=== PATIENT | male | born 1965 | race Caucasian/White ===

== ENCOUNTER → 2018-12-02 | Outpatient (CLI) | payer BC | END | disposition home or self-care (01) | LOC: LABPAT 15:32 | PROVIDERS: ATTEND Orthopaedic Surgery | DX: Z01.812 Encounter for preprocedural laboratory examination (principal); M16.11 Unilateral primary osteoarthritis, right hip | CPT/HCPCS: 87070 ==

== ENCOUNTER 2018-12-06 06:29 | Inpatient (IN) | payer BC ==
--- NOTE | 2018-12-05 19:05 | HP ---
HISTORY AND PHYSICAL REASON FOR ADMISSION: Surgery scheduled for 12/06/2018 HISTORY OF PRESENT ILLNESS: Merritt Guzmán is a 53-year-old patient seen with symptomatic right hip osteoarthritis. We discussed options for treatment. He elected to proceed with right total hip arthroplasty via direct anterior approach. Consent regarding the procedure was obtained. PAST MEDICAL HISTORY: Noncontributory. PAST SURGICAL HISTORY: Jaw reconstruction/mandibular reconstruction. DAILY MEDICATIONS: None. ALLERGIES: None. SOCIAL HISTORY: Denies tobacco use. PHYSICAL EXAMINATION: Evaluation of the right hip: His range of motion is limited with pain. Positive hip impingement sign. The right lower extremity is 1 cm short. Straight leg raise is negative. Distal neurovascular exam is intact. RADIOGRAPHS: Radiographs of the right hip revealed moderate/severe osteoarthritic changes. IMPRESSION: Right hip osteoarthritis. PLAN: Direct anterior right total hip arthroplasty. Surgery schedule 12/06/2018. MMODL / IJN: [id number] /
[~2018-12-06 06:29] MED LIST: HYDROmorphone 0.5 MG/0.5 ML SYRINGE IVP PRN; LIDOCAINE 1% 20 ML VIAL (10MG/ML) FOR IV START INTRADERMA PRN; ROPIVACAINE 246.25 MG, EPINEPHrine 0.5 MG, KETOROLAC 30 MG, cloNIDine HCL/PF 80 MCG, WA... MISCELLANE ONE; TRANEXAMIC ACID 1,000 MG in SODIUM CHLORIDE 0.9% 100 ML IVPB ONE
[2018-12-06] MEDS ORDERED: LIDOCAINE 1% 20 ML VIAL (10MG/ML) FOR IV START INTRADERMA ONE (07:06)
[2018-12-06] MEDS: LACTATED RINGERS 1,000 ML IV SCH ×2 (07:06→07:34)
[2018-12-06] MEDS: ACETAMINOPHEN TAB 500 MG TAB PO ONE ×2 (07:14→10:16)
[2018-12-06] MEDS: MELOXICAM 7.5 MG TAB PO ONE ×2 (07:14→10:16)
[2018-12-06] MEDS: ONDANSETRON 4 MG/2 ML VIAL IVP ONE ×2 (07:15→10:17)
[2018-12-06] MEDS ORDERED: ROPIVACAINE 246.25 MG, EPINEPHrine 0.5 MG, KETOROLAC 30 MG, cloNIDine HCL/PF 80 MCG, WA... MISCELLANE ONE ×5 (07:27)
[2018-12-06] MEDS ORDERED: LIDOCAINE 1% INJ 10MG/ML (20 ML MDV) ONE (07:31)
[2018-12-06] MEDS ORDERED: PHENYLEPHRINE-0.9% NACL SYG 1 MG/10 ML SYRINGE ONE (07:31)
[2018-12-06] MEDS ORDERED: MIDAZOLAM 2 MG/2 ML VIAL ONE (07:31)
[2018-12-06] MEDS ORDERED: fentaNYL (PF) 50 MCG/ML 2 ML AMP ONE (07:31)
[2018-12-06] MEDS ORDERED: PROPOFOL 10 MG/ML 20 ML VIAL IV ONE (07:31)
[2018-12-06] MEDS ORDERED: KETOROLAC 30 MG/ML 1 ML VIAL ONE (07:31)
[2018-12-06] MEDS ORDERED: TRANEXAMIC ACID 1,000 MG/10 ML VIAL ONE (07:31)
[2018-12-06] MEDS ORDERED: SODIUM CHLORIDE 0.9% 100 ML BAG ONE (07:31)
[2018-12-06] MEDS ORDERED: ceFAZolin 3,000 MG in SODIUM CHLORIDE 0.9% IRRIGATIO 3,000 ML IRRIGATION ONE (08:16)
[2018-12-06] MEDS ORDERED: ONDANSETRON 4 MG/2 ML VIAL IVP PRN (09:28)
[2018-12-06] MEDS ORDERED: NALOXONE 0.4 MG/ML 1 ML VIAL IV PRN (09:28)
[2018-12-06] MEDS ORDERED: HYDROmorphone 0.5 MG/0.5 ML SYRINGE IVP PRN ×2 (09:28)
[2018-12-06] MEDS ORDERED: HYDROmorphone 1 MG/ML 1 ML SYRINGE IVP PRN (09:28)
[2018-12-06] MEDS ORDERED: HYDROcodone/APAP 5-325MG 1 EACH TAB PO PRN (09:28)
--- NOTE | 2018-12-06 09:28 | P.OP ---
Date of Procedure: 12/06/18 Preoperative Diagnosis: Right hip osteoarthritis Postoperative Diagnosis: Right hip osteoarthritis Procedure(s) Performed: Direct anterior right total hip arthroplasty Implants: 1. Depuy Corail KA size 12 press-fit femoral stem 2. Depuy pinnacle 56 mm press-fit acetabular shell 3. Depuy pinnacle polyethylene acetabular liner neutral 36 mm ID 56 mm OD 4. Biolox delta ceramic femoral head +5 36 mm Anesthesia: local, spinal Surgeon: Bill Mei Assistant Director #1: Riley Bolanos Estimated Blood Loss (ml): 250 Pathology: other (Femoral head) Condition: stable Disposition: PACU Indications for Procedure: 53-year-old patient seen with symptomatic right hip osteoarthritis. After treatment options were discussed, he elected to proceed with total hip arthroplasty. Operative Findings: See description of procedure Description of Procedure: The patient was taken to the operative suite. Patient underwent a spinal anesthetic by the department of anesthesia. Patient was then transferred to the [place] table. Patient was given preoperative IV antibiotics and TXA. Both lower extremities were placed in standard leg spars. The hip was then prepped and draped in the normal sterile orthopedic fashion. A standard anterior incision was made beginning 3 cm lateral and 1 cm distal to the ASIS extending 10 cm. Dissection was then carried down through the subcutaneous soft tissues down to the fascia overlying the tensor fascia dallin. An incision was now made through the fascia. Careful dissection was taken down exposing the tensor fascia dallin muscle. A Cobra retractor was now placed along the medial femoral neck and a second one along the lateral femoral neck. The venous circumflex vessels were now identified, cauterized and clipped. We identified the anterior hip capsule. An incision was made through the hip capsule along the lateral border. I performed a partial anterior capsulectomy. Retractors were now placed around the femoral neck itself. A femoral neck cut was now made with a sagittal saw. It was completed with an osteotome at the lateral neck area. The femoral head was now removed without difficulty. The extremity was now rotated to 45 of external rotation. It was locked in position. Residual labrum was now debrided out. Serial reaming was performed of the acetabulum while Siddharth PHAM assisted holding an anterior retractor for exposure. Once we reached the appropriate size and a trial was position and fit nicely. The appropriate size was now chosen opened and made available. It was introduced into the acetabulum without difficulty. The C-arm/fluoroscopy was now brought into the operative field. We made sure we had a true AP pelvic view. We now under direct C- arm/fluoroscopy introduced into the acetabular component with appropriate version and inclination. I held the cup in appropriate position well Siddharth PHAM used a mallet to seat the acetabular component. I noted the component now to be well seated and stable. Acetabular cup introduce her was removed. The C-arm was pulled back. An appropriate liner was introduced and clicked into position. It was felt to be stable. At this point retractors were removed. The extremity was now placed into 120 external rotation with no traction. The leg was now dropped to the ground and adducted. Appropriate retractors were now positioned along the proximal femur. We also placed our femoral look into position. Additional capsular releasing was performed to gain access to the proximal femur. We now used a box osteotome. A canal finder was now utilized. Serial broaching was now performed with the assistance of Siddharth PHAM tapping the broaches down with a mallet while held the broach in appropriate rotation and position. This was done until we reached the appropriate size with good overall rotational stability. Appropriate calcar planing was performed. A trial head/neck was placed into position. The hip was now reduced. The C-arm/ fluoroscopy was brought back into the operative field. A spot film was obtained of the nonoperative hip. A spot film was obtained of the trial components. Overlays were performed, we noted good overall alignment and positioning for determining leg length. The C-arm/fluoroscopy was pulled back. Retractors were repositioned and the hip was dislocated. The leg was again taken down to the ground and adducted. Appropriate retractors were repositioned as well as the femoral hook. All trial components were removed. The femoral implant was opened along with the femoral head. The femoral implant was introduced on the appropriate handle into our pre-broached area. I held the component position well Siddharth PHAM used a mallet to seat the femoral component. The femoral component was now noted to be well seated and stable.. The femoral head was introduced with good positioning and fixation noted. Retractors were now removed. The hip was now reduced. There appeared be good positioning of the hip confirmed on intraoperative fluoroscopy. Spot films were obtained to document this. A second gram of TXA was given. The deep and superficial soft tissues were infiltrated with local analgesic. Bipolar cautery had been utilized intermittently through the procedure for hemostasis. The wound was irrigated copiously with pulse lavage mechanical irrigation. The fascia was repaired with Vicryl suture. The subcutaneous soft tissues were repaired in layers with Vicryl suture. The skin was approximated with pernio/Dermabond. Sterile dressings were applied. Patient was then awakened, transferred to a bed and taken to recovery in stable condition. Siddharth PHAM assisted with the complex procedure.
[2018-12-06] MEDS ORDERED: LACTATED RINGERS 1,000 ML IV ONE (09:29)
--- NOTE | 2018-12-06 11:59 | XR ---
Limited right hip HISTORY: Anterior hip replacement Single intraoperative C-arm image documents the procedure
--- NOTE | 2018-12-06 12:00 | FL ---
Fluoroscopy HISTORY: Anterior hip replacement 33 seconds fluoroscopy time supplied to the referring clinician. 1 intraoperative C-arm images docum ent the procedure. See dictated report from orthopedic surgery.
--- NOTE | 2018-12-06 14:09 | P.CONS ---
History of Present Illness - Reason for Consult Perioperative compensation management, mild sinus bradycardia - History of Present Illness Patient is a pleasant 53-year-old gentleman admitted for right hip arthrosis accident with surgery with very minimal blood loss pain is well-controlled denied any fever chills nausea vomiting abdominal pain. Patient denied any lightheadedness. Review of Systems REVIEW OF SYSTEMS: CONSTITUTIONAL: No fever, no malaise, no fatigue. HEENT: No recent visual problems or hearing problems. Denied any sore throat. CARDIOVASCULAR: No chest pain, orthopnea, PND, no palpitations, no syncope. PULMONARY: No shortness of breath, no cough, no hemoptysis. GASTROINTESTINAL: No diarrhea, no nausea, no vomiting, no abdominal pain. NEUROLOGICAL: No headaches, no weakness, no numbness. HEMATOLOGICAL: Denies any bleeding or petechiae. GENITOURINARY: Denies any burning micturition, frequency, or urgency. MUSCULOSKELETAL/RHEUMATOLOGICAL: Denies any joint pain, swelling, or any muscle pain. ENDOCRINE: Denies any polyuria or polydipsia. The rest of the 14-point review of systems is negative. Past Medical History Past Medical History: Osteoarthritis (OA) Additional Past Medical History / Comment(s): ARTHRITIS RIGHT HIP, HX OF JAW TUMOR AND BONE GRAFT TO LEFT LOWER JAW- ONLY ABLE TO OPEN JAW APPROX 1 INCH. History of Any Multi-Drug Resistant Organisms: None Reported Additional Past Surgical History / Comment(s): LEFT LOWER JAW TUMOR REMOVED WITH BONE USED FROM LEFT LOWER LEG. Past Anesthesia/Blood Transfusion Reactions: No Reported Reaction Additional Past Anesthesia/Blood Transfusion Reaction / Comm: HX OF JAW SURGERY- ONLY ABLE TO OPEN MOUTH APPROX 1 INCH. Past Psychological History: No Psychological Hx Reported Smoking Status: Never smoker Past Alcohol Use History: Occasional Past Drug Use History: None Reported - Past Family History Father Family Medical History: Cancer Additional Family Medical History / Comment(s): ESOPHAGEAL CANCER Mother Family Medical History: Cancer Additional Family Medical History / Comment(s): BREAST CANCER Medications and Allergies Home Medications Medication Instructions Recorded Confirmed Type Naproxen Sodium [Aleve] 220 mg PO BID PRN 11/26/18 12/06/18 History HYDROcodone/APAP 7.5-325MG [[place] 1 tab PO Q6H PRN 12/06/18 12/06/18 History 7.5-325] Allergies Allergy/AdvReac Type Severity Reaction Status Date / Time No Known Allergies Allergy Verified 12/06/18 09:25 Physical Exam Vitals: Vital Signs Temp Pulse Resp BP Pulse Ox 12/06/18 10:00 57 L 18 117/70 99 12/06/18 09:45 68 18 112/64 97 12/06/18 09:39 98.3 F 80 16 104/55 98 12/06/18 07:01 97.4 F L 70 16 141/77 96 Intake and Output 12/05/18 12/06/18 12/06/18 22:59 06:59 14:59 Intake Total 1551 Output Total 250 Balance 1301 Intake: IV 1051 Oral 500 Output: Estimated Blood Loss 250 PHYSICAL EXAMINATION: GENERAL: The patient is alert and oriented x3, not in any acute distress. Well developed, well nourished. HEENT: Pupils are round and equally reacting to light. EOMI. No scleral icterus. No conjunctival pallor. Normocephalic, atraumatic. No pharyngeal erythema. No thyromegaly. CARDIOVASCULAR: S1 and S2 present. No murmurs, rubs, or gallops. PULMONARY: Chest is clear to auscultation, no wheezing or crackles. ABDOMEN: Soft, nontender, nondistended, normoactive bowel sounds. No palpable organomegaly. MUSCULOSKELETAL: No joint swelling or deformity. EXTREMITIES: No cyanosis, clubbing, or pedal edema. Right hip post surgically packed NEUROLOGICAL: Gross neurological examination did not reveal any focal deficits. SKIN: No rashes. Assessment and Plan Plan: -Mild sinus bradycardia:asymptomatic no further intervention is necessary. -Osteoarthritis with right hip arthroplasty: Patient is on Lovenox for DVT pr ophylaxis. Management as per primary service. Patient probably can be discharged tomorrow Follow the patient on as-needed basis and no further recommendations from medicine
[2018-12-06 14:28] VITALS: BMI 30.1
[2018-12-06] MEDS: traMADol 50 MG TAB PO PRN (17:54)
[2018-12-06] MEDS: HYDROcodone/APAP 5-325MG 1 EACH TAB PO PRN (19:22)
[2018-12-06] MEDS ORDERED: SENNOSIDES-DOCUSATE SODIUM 1 EACH TAB PO SCH (21:00)
[2018-12-06 21:13] VITALS: RESP 17
[2018-12-07] MEDS: LACTATED RINGERS 1,000 ML IV SCH (00:01)
[2018-12-07] MEDS: HYDROcodone/APAP 5-325MG 1 EACH TAB PO PRN ×2 (02:32→07:58)
[2018-12-07 03:21] VITALS: PULSE 73
[2018-12-07 07:43] LABS: Basophils % (A) 0 %; Eosinophils # (A) 0.2 k/uL (0-0.7); Eosinophils % (A) 3 %; HCT 36.5 % (39.0-53.0); HGB 12.3 gm/dL (13.0-17.5); Lymphocytes # (A) 1.1 k/uL (1.0-4.8); Lymphocytes % (A) 16 %; MCH 32.3 pg (25.0-35.0); MCHC 33.7 g/dL (31.0-37.0); MCV 96.1 fL (80.0-100.0); Mean Platelet Volume 6.8; Monocytes # (A) 0.6 k/uL (0-1.0); Monocytes % (A) 9 %; Neutrophils % (A) 71 %; Platelet Count 210 k/uL (150-450); RDW 12.5 % (11.5-15.5)
[2018-12-07 08:19] VITALS: BP 108/70; TEMP 99.1
[2018-12-07] MEDS ORDERED: ENOXAPARIN 40 MG/0.4 ML SYRINGE SQ SCH (09:00)
[2018-12-07] MEDS ORDERED: MELOXICAM 7.5 MG TAB PO SCH (09:00)
--- NOTE | 2018-12-07 10:47 | P.PN ---
Subjective Progress Note Date: 12/07/18 Principal diagnosis: Status post right anterior total hip arthroplasty Patient is examined at bedside, is resting comfortably. His pain is well- controlled at this time. Exam believe well with therapy. Denies any chest pain or shortness of breath Objective - Vital Signs Vital signs: Vital Signs Temp 99.1 F 12/07/18 07:00 Pulse 73 12/07/18 07:00 Resp 17 12/07/18 07:00 BP 108/70 12/07/18 07:00 Pulse Ox 96 12/07/18 07:00 Intake & Output 12/06/18 12/07/18 12/07/18 18:59 06:59 18:59 Intake Total 1551 840 Output Total 250 Balance 1301 840 Intake: IV 1051 Oral 500 840 Output: Estimated Blood Loss 250 Other: Voiding Method Toilet # Voids 2 - Exam Right lower extremity: Incision is clean, dry, and intact. The exofin fusion tape is in good condition. There is minimal soft tissue swelling and ecchymosis surrounding the medial and lateral aspects of the incision. Calf is soft, no tenderness with palpation. Plantar flexion, dorsiflexion, EHL, FHL are intact. Sensory exam to light touch throughout the extremity is intact, dorsal pedis pulses 2+. - Labs CBC & Chem 7: 12/07/18 06:36 Labs: Abnormal Lab Results - Last 24 Hours (Table) 12/07/18 Range/Units 06:36 RBC 3.80 L (4.30-5.90) m/uL Hgb 12.3 L (13.0-17.5) gm/dL Hct 36.5 L (39.0-53.0) % Assessment and Plan Plan: Assessment: Postoperative day 1 status post direct anterior right total hip arthroplasty Plan: Pain control, plan for discharge home on oral medication GI and DVT prophylaxis, 81 mg aspirin twice a day Wound care instructions discussed Home physical therapy and nursing after discharge Medical recommendations Patient is stable for discharge home today Time with Patient: Less than 30
--- NOTE | 2018-12-07 10:51 | P.DS ---
Providers Date of admission: 12/06/18 06:29 Expected date of discharge: 12/07/18 Attending physician: Bill Mei Consults: 12/06/18 09:28 Consult Physician Routine Consulting Provider: Sveta Gao Reason/Comments: Medical management Do you want consulting provider notified?: Yes Primary care physician: Sveta Gao Hospital Course: Date of admission: 12/06/2018 Date of discharge: 12/07/2018 Admission diagnosis: Status post direct anterior right total hip arthroplasty Discharge diagnosis: Same Attending physician: Dr. Mei Surgical procedures: Direct anterior right total hip arthroplasty Brief history: Patient is a 53-year-old male with a history of progressive primary right hip osteoarthritis. At this point patient has failed conservative treatment measures and has opted to proceed with a elective right total hip arthroplasty. Hospital course: Details of patient's surgery can be found in operative report. Patient tolerated the procedure well and was subsequently transported to orthopedic floor. Patient's orthopeidc and medical care was provided daily. Patient had daily laboratory tests performed for evaluation of overall blood counts. Patient had daily physical therapy to include strengthening range of motion as well as education with walker ambulation. Patient was treated with Lovenox for their postoperative DVT prophylaxis during their inpatient stay. Patient was noted to have a relatively uneventful postoperative course. Patient reported satisfactory pain control with oral pain medications by postoperative day 0. Patient showed satisfactory progress with physical therapy. Patient moved steadily through the program and had no difficulty meeting the goals by postoperative day 1. Given patient's otherwise satisfactory course and having met physical therapy goals, plan is to discharge patient home on postoperative day 1. Discharge condition/disposition: Patient will be discharged home in stable condition. Discharge medications: Instructions are given on resumption of patient's normal daily medications per primary care recommendation, in addition patient will be prescribed [place] 10 mg/325 mg, tramadol 50 mg, Colace 100 mg, aspirin 81 mg, Pepcid 20 mg. Discharge instructions: 1. Wound care and infection precautions, keep incision dry and covered while showering, no lotions, creams, moisturizers. No soaking, tubs, pools, hottubs. Do not scrub over the incision. 2. Weight-bear as tolerated with walker / cane until follow-up. 3. Ice and elevate when necessary. Do not exceed 20 minutes per hour with ice pack. 4. Utilize compression sleeve until seen at first follow up appointment. 5. Visiting nursing care. 6. Home physical therapy 7. Pain meds and anticoagulants per prescription. 8. Pain medication has potential to cause constipation. Increase oral fluid and fiber intake. Contact primary care provider if you have not had a bowel movement within 48 hours after discharge 9. No anti-inflammatory medication until discussed at first post operative visit, this including Motrin, Aleve, Mobic, Diclofenac 10. Follow up in office at 2 weeks postop with Siddharth Bolanos PA-C 11. Follow up with your primary care doctor 7-10 days after discharge. 12. Contact [facility] with any questions, . Procedures: Direct anterior right total hip arthroplasty Patient Condition at Discharge: Good Plan - Discharge Summary Discharge Rx Participant: No New Discharge Prescriptions: New Aspirin [Adult Low Dose Aspirin EC] 81 mg PO BID #60 tablet. Doccheryl [Colace] 100 mg PO DAILY #30 capsule Hydrocodone/Acetaminophen [[place] 10-325] 1 each PO Q6H PRN #28 tab PRN Reason: Pain Famotidine [Pepcid] 20 mg PO DAILY #30 tablet traMADol HCl [Ultram] 50 mg PO Q6H PRN #28 tab PRN Reason: Pain Discharge Medication List Aspirin [Adult Low Dose Aspirin EC] 81 mg PO BID #60 tablet. 12/07/18 [Rx] Docusate [Colace] 100 mg PO DAILY #30 capsule 12/07/18 [Rx] Famotidine [Pepcid] 20 mg PO DAILY #30 tablet 12/07/18 [Rx] Hydrocodone/Acetaminophen [[place] 10-325] 1 each PO Q6H PRN #28 tab 12/07/18 [Rx] traMADol HCl [Ultram] 50 mg PO Q6H PRN #28 tab 12/07/18 [Rx] Follow up Appointment(s)/Referral(s): Bill Mei DO [Doctor of Osteopathic Medicine] - 12/21/18 10:10 am [facility], [NON-STAFF] - Activity/Diet/Wound Care/Special Instructions: Orthopedic Discharge Instructions: 1. Wound care and infection precautions, keep incision dry and covered while showering, no lotions, creams, moisturizers. No soaking, pools, hot tubs. Do not scrub over incision. 2. Weight-bear as tolerated with walker / cane until follow-up. 3. Ice and elevate when necessary. Do not exceed 20 minutes per hour with ice pack. 4. Utilize compression sleeve until seen at first follow up appointment. 5. Pain meds and anticoagulants per prescription. 6. Pain medication has potential to cause constipation. Increase oral fluid and fiber intake. Contact primary care provider if you have not had a bowel movement within 48 hours after discharge. 7. No anti-inflammatory medication until discussed at first post operative visit, this including Motrin, Aleve, Mobic, Diclofenac. 8. Follow up in office at 2 weeks postop with Siddharth Bolanos PA-C 9. Follow up with your primary care doctor 7-10 days after discharge. 10. Contact [facility] with any questions, . Discharge Disposition: HOME WITH HOME HEALTH SERVICES
[2018-12-07] MEDS: traMADol 50 MG TAB PO PRN (12:47)
--- NOTE | 2018-12-07 13:13 | P.PN ---
Subjective overall patient is clinically doing well no overnight events no further recommendations from medicine can be discharged from medical perspective. Constitutional: Denied any fatigue denied any fever. Cardio vascular: denied any chest pain, palpitations Gastrointestinal denied any nausea vomiting Pulmonary: Denied any shortness of breath cough Neurologic denied any new focal deficits All inpatient medications were reviewed and appropriate changes in these medications as dictated in the interval history and assessment and plan. Objective - Vital Signs Vital signs: Vital Signs Temp 99.1 F 12/07/18 07:00 Pulse 73 12/07/18 07:00 Resp 17 12/07/18 07:00 BP 108/70 12/07/18 07:00 Pulse Ox 96 12/07/18 07:00 Intake & Output 12/06/18 12/07/18 12/07/18 18:59 06:59 18:59 Intake Total 1551 840 Output Total 250 Balance 1301 840 Intake: IV 1051 Oral 500 840 Output: Estimated Blood Loss 250 Other: Voiding Method Toilet # Voids 2 - Exam PHYSICAL EXAMINATION: GENERAL: The patient is alert and oriented x3, not in any acute distress. Well developed, well nourished. HEENT: Pupils are round and equally reacting to light. EOMI. No scleral icterus. No conjunctival pallor. Normocephalic, atraumatic. No pharyngeal erythema. No thyromegaly. CARDIOVASCULAR: S1 and S2 present. No murmurs, rubs, or gallops. PULMONARY: Chest is clear to auscultation, no wheezing or crackles. ABDOMEN: Soft, nontender, nondistended, normoactive bowel sounds. No palpable organomegaly. MUSCULOSKELETAL: No joint swelling or deformity. EXTREMITIES: No cyanosis, clubbing, or pedal edema. Right hip post surgically packed NEUROLOGICAL: Gross neurological examination did not reveal any focal deficits. SKIN: No rashes. - Labs CBC & Chem 7: 12/07/18 06:36 Labs: Abnormal Lab Results - Last 24 Hours (Table) 12/07/18 Range/Units 06:36 RBC 3.80 L (4.30-5.90) m/uL Hgb 12.3 L (13.0-17.5) gm/dL Hct 36.5 L (39.0-53.0) % Assessment and Plan Plan: -Mild sinus bradycardia:asymptomatic no further intervention is necessary.resolved now -Osteoarthritis with right hip arthroplasty: Patient is on Lovenox for DVT prophylaxis. Management as per primary service. Patient probably can be discharged tomorrow Follow the patient on as-needed basis and no further recommendations from medicine
== END 2018-12-07 13:02 | disposition home health service (06) | DRG 470 ==
LOC: 2ORMAIN 06:29 → 4SSUR 09:22
PROVIDERS: ADMIT Orthopaedic Surgery; ATTEND Orthopaedic Surgery
PROC: 0SR904A Replacement of Right Hip Joint with Ceramic on Polyethylene Synthetic Substitute, Uncemented, Open Approach (ICD-10-PCS; principal; 2018-12-06 07:30)
DX: M16.11 Unilateral primary osteoarthritis, right hip (principal); R00.1 Bradycardia, unspecified; Z87.39 Personal history of other diseases of the musculoskeletal system and connective tissue; Z98.890 Other specified postprocedural states; Z80.0 Family history of malignant neoplasm of digestive organs; Z80.3 Family history of malignant neoplasm of breast
CPT/HCPCS: 73501; 85025; 86850; 86900; 86901; 88300

== ENCOUNTER → 2019-02-01 | Outpatient (CLI) | payer BC ==
--- NOTE | 2019-02-01 11:06 | MR ---
EXAMINATION TYPE: MR knee RT wo con DATE OF EXAM: 02/01/2019 COMPARISON: None HISTORY: Right knee pain TECHNIQUE: Multiplanar, multisequence images of the knee is performed without IV contrast. FINDINGS: MEDIAL MENISCUS: There is a thick oblique signal within the posterior inferior aspect of the medial m eniscus compatible with a tear. This tears to communicate with the inferior articular surface mediall y. Anterior horn medial meniscus appears intact. LATERAL MENISCUS: Anterior and posterior horns are intact without tear. CRUCIATE LIGAMENTS: The anterior and posterior cruciate ligaments are intact and unremarkable. COLLATERAL LIGAMENTS: The medial collateral ligament and lateral collateral ligament complex are inta ct and unremarkable. EXTENSOR MECHANISM: Visualized quadriceps and patellar tendons are intact. EFFUSION: There is a small joint effusion present in the suprapatellar joint space. POPLITEAL CYST: No popliteal/cherry cyst. TRICOMPARTMENT SPACES: Joint spaces are preserved. CARTILAGE: Cartilage is intact. BONE MARROW SIGNAL: No focal abnormal marrow signal is appreciated. No contusion or edema is identifi ed. OTHER: No additional significant abnormality is appreciated. IMPRESSION: 1. Complex oblique tear or internal derangement of the posterior horn medial meniscus. 2. Small joint effusion.
== END | disposition home or self-care (01) ==
LOC: RADMRIMAIN 07:28
PROVIDERS: ATTEND Orthopaedic Surgery
DX: M25.461 Effusion, right knee (principal)

== ENCOUNTER 2019-03-03 11:30 | Day surgery (SDC) | payer BC ==
[2019-03-01 13:35] VITALS: BMI 29.1
--- NOTE | 2019-03-02 16:12 | HP ---
HISTORY AND PHYSICAL DATE OF SURGERY: 03/03/2019 Merritt Guzmán is a 53-year-old patient seen with progressive right knee pain. We discussed options. He elected to proceed with arthroscopy. Consent was obtained. PAST MEDICAL HISTORY: Noncontributory. PAST SURGICAL HISTORY: 1. Jaw surgery. 2. Total hip arthroplasty. DAILY MEDICATIONS: None. ALLERGIES: NONE REPORTED. SOCIAL HISTORY: Denies tobacco use. PHYSICAL EVALUATION OF THE RIGHT KNEE: Range of motion is 0 to 130. Tenderness, medial joint line. Positive medial Ajit's. Ligaments stable. Hip rotation without pain. Distal neurovascular exam is intact. RADIOGRAPHS: Right knee radiographs revealed mild osteoarthritis. MRI of the right knee revealed medial meniscal tear. IMPRESSION: Internal derangement of right knee with medial meniscal tear. PLAN: Right knee arthroscopy with partial meniscectomy and debridement. MMAMYL / IJN: [id number] /
[~2019-03-03 11:30] MED LIST changes: +DEXAMETHASONE SOD PHOSPHATE 10 MG/ML 1 ML VIAL IV ONE; +LACTATED RINGERS 1,000 ML IV SCH; -ROPIVACAINE 246.25 MG, EPINEPHrine 0.5 MG, KETOROLAC 30 MG, cloNIDine HCL/PF 80 MCG, WA... MISCELLANE ONE; +SCOPOLAMINE 1.5MG/72HR PATCH TRANSDERM ONE; -TRANEXAMIC ACID 1,000 MG in SODIUM CHLORIDE 0.9% 100 ML IVPB ONE
[2019-03-03] MEDS ORDERED: MIDAZOLAM 2 MG/2 ML VIAL IVP ONE (11:52)
[2019-03-03] MEDS ORDERED: fentaNYL (PF) 50 MCG/ML 2 ML AMP IVP ONE (11:53)
[2019-03-03] MEDS ORDERED: ONDANSETRON 4 MG/2 ML VIAL IVP ONE (11:54)
[2019-03-03] MEDS ORDERED: MIDAZOLAM 2 MG/2 ML VIAL ONE (12:12)
[2019-03-03] MEDS ORDERED: BUPIVACAINE (PF) 0.25% 30 ML VIAL SQ ONE (12:13)
--- NOTE | 2019-03-03 12:55 | P.OP ---
Date of Procedure: 03/03/19 Preoperative Diagnosis: Internal derangement right knee Postoperative Diagnosis: 1. Tear medial meniscus right knee 2. Reactive synovitis medial, lateral and suprapatellar compartments right knee Procedure(s) Performed: 1. Arthroscopic partial medial meniscectomy right knee 2. Arthroscopic partial synovectomy medial, lateral and suprapatellar compartments right knee Anesthesia: JEWELA, local Surgeon: Bill Mei Estimated Blood Loss (ml): 5 Pathology: none sent Condition: stable Disposition: PACU Indications for Procedure: 53-year-old patient seen with progressive right knee pain. After treatment options were discussed, he elected to proceed with arthroscopy. Operative Findings: See description of procedure Description of Procedure: Patient was taken to the operative suite. Patient underwent a general ane sthetic by the department of anesthesia. Patient was given preoperative antibiotics. The right lower extremity was placed in a well-padded arthroscopic leg schmitt. The right leg was prepped and draped in the normal sterile orthopedic fashion. A lateral parapatellar and suprapatellar incision was made. Trochars were inserted. Arthroscopy was initiated. Suprapatellar pouch revealed diffuse thick reactive synovitis. The patellofemoral joint appeared to articulate congruently. The scope was guided into the medial gutter. No loose bodies or plica were identified. The scope was then guided into the medial compartment. A medial parapatellar incision was made. Trocar inserted followed by probe. There was a complex tear posterior horn medial meniscus. Reactive synovitis anteriorly. There was no significant chondromalacia. I performed a partial medial meniscectomy getting down to stable meniscal tissue. I performed a partial synovectomy decompressing the reactive synovitis. The residual meniscus was probed and found to be stable. There was good decompression of the synovitis. Scope and probe were then guided into the intercondylar notch. Cruciates were identified, probed and found to be stable. The scope and probe were then guided into lateral compartment. Lateral meniscus was probed and found to be stable. There was reactive synovitis anteriorly. There was no s ignificant chondromalacia. I performed a partial synovectomy decompressing reactive synovitis. There was good decompression of the synovitis. The scope was in guided back into the suprapatellar compartment. I introduced a motorized shaver into the super patellar compartment. I debrided some piecemeal fragments of meniscus I encountered. I performed a partial synovectomy decompressing the reactive synovitis. Shaver was removed. There was good decompression of the synovitis. I took one more look on the entire knee, no residual debris. Instruments were now removed from the joint. The joint was infiltrated with .25% Marcaine. Steri-Strips were applied to the portal sites. Sterile dressings were applied. The patient was placed into a FERCHO hose. No tourniquet was utilized. The patient was awakened, transferred to a bed and taken to recovery stable satisfactory condition.
[2019-03-03 13:02] VITALS: TEMP 97.1
[2019-03-03 14:05] VITALS: RESP 18
[2019-03-03 15:00] VITALS: BP 120/75; PULSE 71
== END 2019-03-03 15:30 | disposition home or self-care (01) ==
LOC: OR 11:30
PROVIDERS: ATTEND Orthopaedic Surgery
DX: S83.241A Other tear of medial meniscus, current injury, right knee, initial encounter (principal); X58.XXXA Exposure to other specified factors, initial encounter; M65.861 Other synovitis and tenosynovitis, right lower leg; Z96.641 Presence of right artificial hip joint
CPT/HCPCS: 29881; 29876; J2250; J1100; J0690; J2405; J3010

== ENCOUNTER → 2024-07-11 | Outpatient (CLI) | payer SELFPAY ==
[2024-07-11 11:03] LABS: INR 1.1 (<1.2); Prothrombin Time 12.1 sec (10.0-12.5)
[2024-07-11 15:22] LABS: HCT 49.3 % (39.6-50.0); HGB 16.5 g/dL (13.0-17.0); MCH 31.7 pg (27.0-32.0); MCHC 33.5 g/dL (32.0-37.0); MCV 94.8 FL (80.0-97.0); Mean Platelet Volume 9.1 FL (9.5-12.2); NRBC Per 100 WBC 0 X 10*3/uL (0.00-0.01); Platelet Count 223 X 10*3/uL (140-440); RDW 11.9 % (11.5-14.5); WBC 5.57 X 10*3/uL (4.50-10.00)
[2024-07-11 15:41] LABS: BUN/Creat Ratio 17.78 Ratio (12.00-20.00); Calcium 9.3 mg/dL (8.7-10.3); Carbon Dioxide 26.1 mmol/L (21.6-31.8); Chloride 103 mmol/L (96-109); Glucose 114 mg/dL (70-110); Potassium 4.4 mmol/L (3.5-5.5); Sodium 139 mmol/L (135-145)
== END | disposition home or self-care (01) ==
LOC: LABPAT 10:22
PROVIDERS: ATTEND Orthopaedic Surgery
DX: Z01.818 Encounter for other preprocedural examination (principal); Z22.322 Carrier or suspected carrier of Methicillin resistant Staphylococcus aureus; M16.12 Unilateral primary osteoarthritis, left hip
CPT/HCPCS: 80048; 85027; 85610; 86850; 86900; 86901; 87070; 93005

== ENCOUNTER 2024-07-21 05:47 | Day surgery (SDC) | payer BC ==
--- NOTE | 2024-07-20 13:43 | HP ---
HISTORY AND PHYSICAL DATE OF SURGERY: 07/21/2024. HISTORY OF PRESENT ILLNESS: Merritt Guzmán is a 59-year-old gentleman seen with symptomatic left hip osteoarthritis. We discussed options regarding treatment. He elected to proceed with direct anterior left total hip arthroplasty. Consent was obtained. PAST MEDICAL HISTORY: Noncontributory. PAST SURGICAL HISTORY: Right total hip arthroplasty. DAILY MEDICATIONS: 1. Keflex. 2. Tramadol. ALLERGIES: None. SOCIAL HISTORY: The patient denies tobacco use. PHYSICAL EVALUATION OF THE LEFT HIP: Diffuse tenderness about the hip girdle. Limited range of motion with severe pain. Positive hip impingement sign. Straight-leg raise is negative. Distal neurovascular exam is intact. IMAGING STUDIES: Radiographs of the left hip revealed severe osteoarthritic changes. IMPRESSION: Left hip osteoarthritis. PLAN: Direct anterior left total hip arthroplasty. MMALLISON / KAIN: [id number] /
[~2024-07-21 05:47] MED LIST changes: -DEXAMETHASONE SOD PHOSPHATE 10 MG/ML 1 ML VIAL IV ONE; -HYDROmorphone 0.5 MG/0.5 ML SYRINGE IVP PRN; -LACTATED RINGERS 1,000 ML IV SCH; +LIDOCAINE 1% (10MG/ML) FOR IV START INTRADERMA PRN; -LIDOCAINE 1% 20 ML VIAL (10MG/ML) FOR IV START INTRADERMA PRN; -SCOPOLAMINE 1.5MG/72HR PATCH TRANSDERM ONE; +TRANEXAMIC 1,000 MG/100ML-NACL 1,000 MG in SALINE 1 100ML.BAG IVPB PRN; +droPERidol 2.5 MG/ML VIAL IVP ONE
[2024-07-21] MEDS: IV FLUID CONTINUATION 1,000 ML IV ONE ×2 (06:42→10:48)
[2024-07-21] MEDS: ACETAMINOPHEN TAB 500 MG TAB PO PRN (06:48)
[2024-07-21] MEDS: LACTATED RINGERS 1,000 ML IV SCH (06:48)
[2024-07-21] MEDS: MELOXICAM 7.5 MG TAB PO PRN (06:49)
[2024-07-21] MEDS ORDERED: fentaNYL (PF) 50 MCG/ML 2 ML AMP IVP PRN (07:00)
[2024-07-21] MEDS: fentaNYL (PF) 50 MCG/ML 2 ML AMP IVP PRN (07:00)
[2024-07-21] MEDS: MIDAZOLAM 2 MG/2 ML VIAL IV ONE (07:00)
[2024-07-21] MEDS: ONDANSETRON 4 MG/2 ML VIAL IVP ONE (07:07)
[2024-07-21] MEDS: DEXAMETHASONE SOD PHOSPHATE 4 MG/ML 1 ML VIAL IV ONE (07:07)
[2024-07-21] MEDS ORDERED: LIDOCAINE 1% INJ 10MG/ML (20 ML MDV) ONE (07:25)
[2024-07-21] MEDS ORDERED: NEOSTIGMINE 1 MG/ML 10 ML VIAL ONE (07:25)
[2024-07-21] MEDS ORDERED: MIDAZOLAM 2 MG/2 ML VIAL ONE (07:25)
[2024-07-21] MEDS ORDERED: HYDROmorphone (PF) 1 MG/ML ONE (07:25)
[2024-07-21] MEDS ORDERED: fentaNYL (PF) 50 MCG/ML 2 ML AMP ONE (07:25)
[2024-07-21] MEDS ORDERED: TRANEXAMIC 1,000 MG/100ML-NACL PREMIX BAG ONE (07:25)
[2024-07-21] MEDS ORDERED: KETAMINE HCL IN 0.9 % NACL 50 MG/5 ML SYRINGE ONE (07:25)
[2024-07-21] MEDS ORDERED: ROPIVACAINE 5 MG/ML 30 ML VIAL ONE (07:25)
[2024-07-21] MEDS ORDERED: SUCCINYLCHOLINE CHLORIDE 200 MG/10 ML VIAL IV ONE (07:25)
[2024-07-21] MEDS ORDERED: GLYCOPYRROLATE 0.2 MG/ML 2 ML VIAL ONE (07:25)
[2024-07-21] MEDS ORDERED: ROCURONIUM 10 MG/ML (5 ML VIAL) IV ONE (07:25)
[2024-07-21] MEDS ORDERED: PROPOFOL 10 MG/ML 20 ML VIAL IV ONE (07:25)
--- NOTE | 2024-07-21 08:35 | P.ANPRN ---
Procedure Note - Anesthesia - Nerve Block Performed Left Job Single Time Out Performed: Yes ([id number]) Date of Procedure: 07/21/24 Procedure Start Time: 07:00 Procedure Stop Time: 07:04 Location of Patient: PreOp Indication: Acute Post-Operative Pain, Requested by Surgeon Specifically requested for management of pain by DrParis: Bill Mei Sedation Type: Sedate with meaningful contact maintained Preparation: Sterile Prep Position: Supine Catheter: None Needle Types: Pajunk Needle Gauge: 21 Ultrasound used to visualize needle placement: Yes Ultrasound used to observe medication spread: Yes Injectate: 0.5% Ropivacaine (see comment for volume) (30cc) Blood Aspirated: No Pain Paresthesia on Injection Noted: No Resistance on Injection: Normal Image Stored and Saved: Yes Events: Uneventful and Well Tolerated
[2024-07-21] MEDS ORDERED: HYDROmorphone 1 MG/ML 1 ML SYRINGE IVP PRN (09:11)
[2024-07-21] MEDS ORDERED: HYDROcodone/APAP 5-325MG 1 EACH TAB PO PRN (09:11)
[2024-07-21] MEDS ORDERED: ONDANSETRON 4 MG/2 ML VIAL IVP PRN (09:11)
[2024-07-21] MEDS ORDERED: HYDROmorphone 0.5 MG/0.5 ML SYRINGE IVP PRN ×2 (09:11)
[2024-07-21] MEDS ORDERED: LACTATED RINGERS 1,000 ML IV ONE (09:11)
[2024-07-21] MEDS ORDERED: HYDROcodone/APAP 7.5-325MG 1 EACH TAB PO PRN (09:11)
[2024-07-21] MEDS ORDERED: NALOXONE 0.4 MG/ML 1 ML VIAL IV PRN (09:11)
--- NOTE | 2024-07-21 09:11 | P.OP ---
Date of Procedure: 07/21/24 Preoperative Diagnosis: Left hip osteoarthritis Postoperative Diagnosis: Left hip osteoarthritis Procedure(s) Performed: Direct anterior left total hip arthroplasty Implants: 1. DePuy [place] 135 degree standard collared KA size 12 press-fit femoral stem 2. DePuy [place] 56 mm press-fit acetabular shell 3. DePuy [place] neutral polyethylene acetabular liner 36 mm ID 56 mm OD 4. Biolox delta ceramic femoral head +5 36 mm Anesthesia: GETA, regional (Erector spinae block) Surgeon: Bill Mei Wheat Inspector #1: Riley Bolanos Estimated Blood Loss (ml): 55 Pathology: none sent Condition: stable Disposition: PACU Indications for Procedure: 59-year-old patient seen with symptomatic left hip osteoarthritis. After having treatment options discussed, he elected to proceed with direct anterior left total hip arthroplasty. Operative Findings: See description of procedure Description of Procedure: The patient was taken to the operative suite. Patient underwent a general anesthetic by the department of anesthesia. Patient was then transferred to the Anderson table. Patient was given preoperative IV antibiotics and TXA. Both lower extremities were placed in standard leg spars. The hip was then prepped and draped in the normal sterile orthopedic fashion. A standard anterior incision was made beginning 3 cm lateral and 1 cm distal to the ASIS extending 10 cm. Dissection was then carried down through the subcutaneous soft tissues down to the fascia overlying the tensor fascia dallin. An incision was now made through the fascia. Careful dissection was taken down exposing the tensor fascia dallin muscle. A Cobra retractor was now placed along the medial femoral neck and a second one along the lateral femoral neck. The venous circumflex vessels were now identified, cauterized and clipped. We identified the anterior hip capsule. An incision was made through the hip capsule along the lateral border. I performed a partial anterior capsulectomy. Retractors were now placed around the femoral neck itself. A femoral neck cut was now made with a sagittal saw. It was completed with an osteotome at the lateral neck area. The femoral head was now removed without difficulty. The extremity was now rotated to 60 of external rotation. It was locked in position. Residual labrum was now debrided out. Serial reaming was performed of the acetabulum while Siddharth PHAM assisted holding an anterior retractor for exposure. Once we reached the appropriate size and a trial was position and fit nicely. The appropriate size was now chosen opened and made available. It was introduced into the acetabulum without difficulty. The C-arm/fluoroscopy was now brought into the operative field. We made sure we had a true AP pelvic view. We now under direct C- arm/fluoroscopy introduced into the acetabular component with appropriate version and inclination. I held the cup in appropriate position well Siddharth PHAM used a mallet to seat the acetabular component. I noted the component now to be well seated and stable. Acetabular cup introduce her was removed. The C-arm was pulled back. An appropriate liner was introduced and clicked into position. It was felt to be stable. At this point retractors were removed. The extremity was now placed into 140 oh external rotation with no traction. The leg was now dropped to the ground and adducted. Appropriate retractors were now positioned along the proximal femur. We also placed our femoral look into position. Additional capsular releasing was performed to gain access to the proximal femur. We now used a box osteotome. A canal finder was now utilized. Serial broaching was now performed with the assistance of Siddharth PHAM tapping the broaches down with a mallet while held the broach in appropriate rotation and position. This was done until we reached the appropriate size with good overall rotational stability. Appropriate calcar planing was performed. A trial head/neck was placed into position. The hip was now reduced. The C- arm/fluoroscopy was brought back into the operative field. I obtained an AP pelvis which demonstrated adequate length alignment. The trial components appeared adequately sized and positioned. The C-arm/fluoroscopy was pulled back. Retractors were repositioned and the hip was dislocated. The leg was again taken down to the ground and adducted. Appropriate retractors were repositioned as well as the femoral hook. All trial components were removed. The femoral implant was opened along with the femoral head. The femoral implant was introduced on the appropriate handle into our pre-broached area. I held the component position well Siddharth PHAM used a mallet to seat the femoral component. The femoral component was now noted to be well seated and stable.. The femoral head was introduced with good positioning and fixation noted. Retractors were now removed. The hip was now reduced. There appeared be good positioning of the hip confirmed on intraoperative fluoroscopy. Spot films were obtained to document this. A second gram of TXA was given. Bipolar cautery had been utilized intermittently through the procedure for hemostasis. The wound was irrigated copiously with pulse lavage mechanical irrigation. The fascia was repaired with Vicryl suture. The subcutaneous soft tissues were repaired in layers with Vicryl suture. The skin was approximated with pernio/Dermabond. Sterile dressings were applied. Patient was then awakened, transferred to a bed and taken to recovery in stable condition. Siddharth PHAM assisted with the complex procedure.
[2024-07-21 09:35] VITALS: TEMP 97.4
--- NOTE | 2024-07-21 09:44 | FL ---
EXAMINATION TYPE: FL guidance operating room, XR Hip Limited LT DATE OF EXAM: 07/21/2024 9:07 AM COMPARISON: Pre Operative Images if available both CT/MRI or plain film CLINICAL INDICATION: Male, 59 years old with history of LEFT ANTERIOR HIP; TECHNIQUE: FL guidance operating room, XR Hip Limited LT, multiple fluoroscopic images provided for p rocedure. DAP: 0.3179 mGym2 Gycm2 uGym2 cGycm2 or equivalent. FINDINGS: Fluoroscopic images during internal fixation/arthroplasty demonstrate hardware in appropriate positio n. Hardware appears intact. No immediate complication identified. IMPRESSION: 1. No evidence for intraoperative complication. 2. Please see the operative/procedural note for further details. [facility], , 07/21/2024 9:42 AM
[2024-07-21] MEDS: HYDROmorphone 0.5 MG/0.5 ML SYRINGE IVP PRN (09:51)
[2024-07-21 12:38] VITALS: PULSE 100
[2024-07-21 13:03] VITALS: BP 137/84; RESP 17
== END 2024-07-21 13:32 | disposition home or self-care (01) ==
LOC: OR 05:47
PROVIDERS: ATTEND Orthopaedic Surgery
DX: M16.12 Unilateral primary osteoarthritis, left hip (principal); G89.18 Other acute postprocedural pain; Z79.1 Long term (current) use of non-steroidal anti-inflammatories (NSAID); Z79.899 Other long term (current) drug therapy; Z96.641 Presence of right artificial hip joint
CPT/HCPCS: 27130; 97161; 64473; 73501; C1776; J2250; J0330; J1100; J2710; J0690; J2405; J2003; J3010; J1171 ×2; J2795; J2704; J1596